=== PATIENT | male | born 1995 | race Caucasian/White ===

== ENCOUNTER 2017-05-19 14:59 | Emergency (ER) | payer MEDICAID, OTHER ==
[~2017-05-19] VITALS: Ht 182.9 cm; Wt 93.0 kg
[~2017-05-19 14:59] MED LIST: METH4TAB3 PO; METH500T PO
[2017-05-19 15:23] VITALS: BP 121/65
[2017-05-19] MEDS ORDERED: ketorolac trometh inj. 60 MG/2 ML VIAL IM ONE (16:15)
[2017-05-19 16:53] LABS: CLARITY,URINE Clear (Clear); COLOR,URINE Yellow (Yellow); GLUCOSE, URINE Negative (Neg); KETONES,URINE Negative (Neg); LEUKOCYTE ESTERASE ,URINE Negative (Neg); NITRITES, URINE Negative (Neg); OCCULT BLOOD,URINE Negative (Neg); PROTEIN,URINE Negative (Neg)
[2017-05-19 16:56] LABS: UA COLLECTION TYPE NON-SPECIFIED
== END 2017-05-19 17:46 | disposition home or self-care (01) ==
LOC: ER 14:59
DX: M54.9 Dorsalgia, unspecified (principal); F12.10 Cannabis abuse, uncomplicated; Z56.0 Unemployment, unspecified; Z79.899 Other long term (current) drug therapy
CPT/HCPCS: 81003; 96372; 99283; J1885

== ENCOUNTER 2017-08-05 15:04 | Emergency (ER) | payer MEDICAID, OTHER ==
[~2017-08-05] VITALS: Ht 182.9 cm; Wt 87.7 kg
[2017-08-05] MEDS ORDERED: dexamethasone sod phosphate 10mg/ml inj IM STA (15:08)
[2017-08-05] MEDS ORDERED: CefTRIAXone 250MG inj IM ONE (15:10)
[2017-08-05] MEDS ORDERED: ketorolac trometh inj. 60 MG/2 ML VIAL IM ONE (15:10)
[2017-08-05] MEDS ORDERED: CefTRIAXone 250MG IM Kit w/LIDOcaine IM ONE (15:15)
[2017-08-05] MEDS ORDERED: CEPH-571 PO (15:23)
[2017-08-05] MEDS ORDERED: LIDO20SO16 PO (15:23)
[2017-08-05] MEDS ORDERED: IBUP-1984 PO (15:23)
[2017-08-05 15:48] VITALS: BP 129/89
== END 2017-08-05 15:49 | disposition home or self-care (01) ==
LOC: ER 15:05
DX: J02.0 Streptococcal pharyngitis (principal); F12.90 Cannabis use, unspecified, uncomplicated; Z90.49 Acquired absence of other specified parts of digestive tract; Z56.0 Unemployment, unspecified; Z79.899 Other long term (current) drug therapy
CPT/HCPCS: 87081; 87880; 96372; 99284; J0696; J1100; J1885

== ENCOUNTER 2017-09-27 00:48 | Emergency (ER) | payer MEDICAID ==
[~2017-09-27] VITALS: Ht 182.9 cm; Wt 90.2 kg
[~2017-09-27 00:48] MED LIST changes: +CEPH-571 PO; +LIDO20SO16 PO
[2017-09-27] MEDS ORDERED: ketorolac trometh inj. 60 MG/2 ML VIAL IM ONE (01:15)
[2017-09-27 01:30] LABS: BASOPHILS # (AUTO) 0.1 X10'3 (0-0.2); BASOPHILS % (AUTO) 0.6 % (0-1); EOSINOPHILS # (AUTO) 0.1 X10'3 (0-0.9); EOSINOPHILS % (AUTO) 1.3 % (0-6); HEMATOCRIT 45.2 % (42.0-52.0); HEMOGLOBIN 15.5 g/dl (14.0-17.9); LYMPHOCYTES # (AUTO) 2.7 X10'3 (1.1-4.8); LYMPHOCYTES % (AUTO) 26.9 % (21-51); MEAN CORPUSCULAR HGB CONC 34.3 % (33.0-36.5); MEAN CORPUSCULAR VOLUME 90.4 FL (78-98); MONOCYTES # (AUTO) 0.5 X10'3 (0-0.9); NEUTROPHILS # (AUTO) 6.7 X10'3 (1.8-7.7); NEUTROPHILS % (AUTO) 66.2 % (42-75); PLATELET COUNT 237 X10'3 (140-440); RED BLOOD COUNT 4.99 X10'6 (4.70-6.10); RED CELL DISTRIBUTION WIDTH 12.1 % (11.5-14.5); WHITE BLOOD COUNT 10.1 X10'3 (4.5-11.0)
[2017-09-27 01:39] LABS: INR 1.1 INR; PROTHROMBIN TIME 11.4 SECONDS (9.0-12.0)
[2017-09-27 01:44] LABS: ALANINE AMINOTRANSFERASE 30 U/L (12-78); ALBUMIN 4.2 G/DL (3.4-5.0); ALBUMIN/GLOBULIN RATIO 1.2 (1.1-1.5); ALKALINE PHOSPHATASE 85 IU/L (46-116); ANION GAP 8 (8-16); ASPARTATE AMINO TRANSFERASE 14 U/L (10-37); BILIRUBIN,TOTAL 0.4 MG/DL (0.1-1.0); BLOOD UREA NITROGEN 12 MG/DL (7-18); BUN/CREATININE RATIO 12.5 (5.4-32.0); CALCIUM 9.3 MG/DL (8.5-10.1); CHLORIDE 103 MMOL/L (99-107); CREATININE 0.96 MG/DL (0.60-1.10); GLUCOSE 101 MG/DL (70-104); LIPASE 160 U/L (73-393); POTASSIUM 3.7 MMOL/L (3.5-5.1); SODIUM 139 MMOL/L (135-145); TOTAL CARBON DIOXIDE 28.3 MMOL/L (24-32); TOTAL PROTEIN 7.7 G/DL (6.4-8.2); eGFR > 90 ML/MIN
[2017-09-27] MEDS ORDERED: HYDR-565 PO (01:53)
[2017-09-27 02:00] VITALS: BP 122/68
[2017-09-27 02:21] LABS: CLARITY,URINE CLEAR (Clear); COLOR,URINE YELLOW (Yellow); GLUCOSE, URINE NEGATIVE (Neg); KETONES,URINE NEGATIVE (Neg); LEUKOCYTE ESTERASE ,URINE NEGATIVE (Neg); NITRITES, URINE NEGATIVE (Neg); OCCULT BLOOD,URINE NEGATIVE (Neg); PROTEIN,URINE NEGATIVE (Neg); UROBILINOGEN,URINE 0.2 E.U/dL (0.2-1.0)
[2017-09-27 02:25] LABS: UA COLLECTION TYPE URINAL
== END 2017-09-27 02:01 | disposition home or self-care (01) ==
LOC: ER 00:48
DX: R10.12 Left upper quadrant pain (principal); F12.90 Cannabis use, unspecified, uncomplicated; Z90.49 Acquired absence of other specified parts of digestive tract; Z56.0 Unemployment, unspecified; Z79.899 Other long term (current) drug therapy
CPT/HCPCS: 36415; 80053; 81003; 83690; 85025; 85610; 96372; 99284; J1885

== ENCOUNTER 2017-11-03 19:25 | Emergency (ER) | payer MEDICAID ==
[~2017-11-03] VITALS: Ht 180.3 cm; Wt 92.0 kg
[2017-11-03] MEDS ORDERED: dexamethasone sod phosphate 10mg/ml inj PO STA (21:04)
[2017-11-03] MEDS ORDERED: ondansetron 4mg rapidly disintigrating tab PO ONE (21:05)
[2017-11-03 22:00] VITALS: BP 134/79
== END 2017-11-03 22:07 | disposition home or self-care (01) ==
LOC: ER 19:26
DX: J02.9 Acute pharyngitis, unspecified (principal); R13.10 Dysphagia, unspecified; R50.9 Fever, unspecified; R05 Cough; F12.90 Cannabis use, unspecified, uncomplicated
CPT/HCPCS: 87081; 87880; 99284; J1100

== ENCOUNTER 2018-08-01 21:41 | Emergency (ER) | payer MEDICAID ==
[~2018-08-01] VITALS: Ht 177.8 cm; Wt 95.0 kg
[~2018-08-01 21:41] MED LIST changes: +CEPH500C5 PO
[2018-08-01] MEDS ORDERED: ketorolac trometh inj. 60 MG/2 ML VIAL IM ONE (22:55)
[2018-08-01] MEDS ORDERED: LIDOcaine 5% patch TP SCH (22:56)
[2018-08-01 23:18] VITALS: BP 118/63
== END 2018-08-01 23:26 | disposition home or self-care (01) ==
LOC: ER 21:42
DX: S39.012A Strain of muscle, fascia and tendon of lower back, initial encounter (principal); F12.90 Cannabis use, unspecified, uncomplicated; Z90.49 Acquired absence of other specified parts of digestive tract; Z56.0 Unemployment, unspecified; Z79.899 Other long term (current) drug therapy; X50.0XXA Overexertion from strenuous movement or load, initial encounter; Y93.89 Activity, other specified; Y92.89 Other specified places as the place of occurrence of the external cause; Y99.8 Other external cause status
CPT/HCPCS: 96372; 99283; J1885

== ENCOUNTER 2018-09-19 13:51 | Emergency (ER) | payer MEDICAID ==
[~2018-09-19] VITALS: Ht 177.8 cm; Wt 97.0 kg
[2018-09-19] MEDS ORDERED: normal saline 1000ML IV soln IVB ONE (14:15)
[2018-09-19] MEDS ORDERED: morphine 4 MG/ML inj SYRINge IV ONE (14:15)
[2018-09-19] MEDS ORDERED: ondansetron/PF 4mg/2ml inj IV ONE (14:15)
[2018-09-19 14:42] LABS: BASOPHILS % (AUTO) 0.4 % (0-1); EOSINOPHILS % (AUTO) 0.3 % (0-6); HEMATOCRIT 46.5 % (42.0-52.0); HEMOGLOBIN 15.9 g/dl (14.0-17.9); LYMPHOCYTES # (AUTO) 1.5 X10'3 (1.1-4.8); LYMPHOCYTES % (AUTO) 19.1 % (21-51); MEAN CORPUSCULAR HEMOGLOBIN 30.8 PG (27.0-31.0); MEAN CORPUSCULAR HGB CONC 34.3 g/dL (33.0-36.5); MEAN CORPUSCULAR VOLUME 89.7 FL (78-98); MEAN PLATELET VOLUME 7.3 FL (7.4-10.4); MONOCYTES # (AUTO) 0.5 X10'3 (0-0.9); MONOCYTES % (AUTO) 6.5 % (2-12); NEUTROPHILS # (AUTO) 5.9 X10'3 (1.8-7.7); NEUTROPHILS % (AUTO) 73.7 % (42-75); PLATELET COUNT 268 X10'3 (140-440); RED BLOOD COUNT 5.18 X10'6 (4.70-6.10); RED CELL DISTRIBUTION WIDTH 13.1 % (11.5-14.5); WHITE BLOOD COUNT 8.1 X10'3 (4.5-11.0)
[2018-09-19 14:53] LABS: ALANINE AMINOTRANSFERASE 204 U/L (12-78); ALBUMIN 4.7 G/DL (3.4-5.0); ALBUMIN/GLOBULIN RATIO 1.2 (1.1-1.5); ALKALINE PHOSPHATASE 88 IU/L (46-116); ANION GAP 10 (8-16); ASPARTATE AMINO TRANSFERASE 85 U/L (10-37); BILIRUBIN,TOTAL 0.7 MG/DL (0.1-1.0); BLOOD UREA NITROGEN 13 MG/DL (7-18); BUN/CREATININE RATIO 15.7 (5.4-32.0); CALCIUM 9.9 MG/DL (8.5-10.1); CHLORIDE 104 MMOL/L (99-107); CREATININE 0.83 MG/DL (0.60-1.10); GLUCOSE 91 MG/DL (70-104); LIPASE 110 U/L (73-393); POTASSIUM 4.1 MMOL/L (3.5-5.1); SODIUM 139 MMOL/L (135-145); TOTAL CARBON DIOXIDE 24.8 MMOL/L (24-32); TOTAL PROTEIN 8.5 G/DL (6.4-8.2); eGFR > 90 ML/MIN
[2018-09-19 17:15] VITALS: BP 118/68
== END 2018-09-19 17:16 | disposition home or self-care (01) ==
LOC: ER 13:51
DX: R10.11 Right upper quadrant pain (principal); R74.8 Abnormal levels of other serum enzymes; R11.0 Nausea; M54.9 Dorsalgia, unspecified; F12.90 Cannabis use, unspecified, uncomplicated; F10.99 Alcohol use, unspecified with unspecified alcohol-induced disorder; Z56.0 Unemployment, unspecified; Z90.49 Acquired absence of other specified parts of digestive tract; Z79.899 Other long term (current) drug therapy; Y90.9 Presence of alcohol in blood, level not specified
CPT/HCPCS: 36415; 76700; 80053; 83690; 85025; 96374; 96375; 99284; J2270; J2405; J7030

== ENCOUNTER 2018-12-08 20:13 | Emergency (ER) | payer MEDICAID ==
[~2018-12-08] VITALS: Ht 177.8 cm; Wt 97.7 kg
[2018-12-08 20:19] VITALS: BP 141/80
[2018-12-08] MEDS ORDERED: LIDOcaine 5% patch TP STA (21:39)
[2018-12-08] MEDS ORDERED: oxyCODONE/APAP 5-325mg tablet PO ONE (21:40)
== END 2018-12-08 22:23 | disposition home or self-care (01) ==
LOC: ER 22:17
DX: M54.5 Low back pain (principal); G89.29 Other chronic pain; F10.99 Alcohol use, unspecified with unspecified alcohol-induced disorder; F12.90 Cannabis use, unspecified, uncomplicated; Z56.0 Unemployment, unspecified; Z90.49 Acquired absence of other specified parts of digestive tract; Z79.899 Other long term (current) drug therapy; Y90.9 Presence of alcohol in blood, level not specified
CPT/HCPCS: 99283

== ENCOUNTER 2019-10-22 20:53 | Emergency (ER) | payer MEDICAID ==
[~2019-10-22] VITALS: Ht 177.8 cm; Wt 100.5 kg
[~2019-10-22 20:53] MED LIST changes: -CEPH500C5 PO
--- NOTE | 2019-10-22 21:46 | NUR ---
has chronic back pain. taking diclofenac and gabapentin.
[2019-10-22] MEDS ORDERED: HYDROcodone/acetaminophen 10/325mg tab PO ONE (23:15)
[2019-10-22] MEDS ORDERED: aspirin 325mg tablet PO ONE (23:15)
[2019-10-23] MEDS ORDERED: naproxen 500mg tablet PO ONE (00:45)
[2019-10-23] MEDS ORDERED: magnesium oxide 400mg tablet PO ONE (00:45)
[2019-10-23] MEDS ORDERED: NAPR-56 PO (00:55)
[2019-10-23 01:18] VITALS: BP 118/55
== END 2019-10-23 01:25 | disposition home or self-care (01) ==
LOC: ER 20:54
DX: M79.661 Pain in right lower leg (principal); G89.29 Other chronic pain; F12.90 Cannabis use, unspecified, uncomplicated; Z90.49 Acquired absence of other specified parts of digestive tract; Z56.0 Unemployment, unspecified; Z79.2 Long term (current) use of antibiotics; Z79.899 Other long term (current) drug therapy
CPT/HCPCS: 93971; 99284; 99285

== ENCOUNTER 2020-09-22 12:57 | Emergency (ER) | payer MEDICAID ==
[~2020-09-22] VITALS: Ht 177.8 cm; Wt 122.7 kg
[2020-09-22] MEDS ORDERED: ketorolac trometh. 30mg/ml inj. IV ONE (13:45)
[2020-09-22] MEDS ORDERED: famotidine/PF 10 mg/ml inj IV ONE (13:45)
[2020-09-22] MEDS ORDERED: ondansetron/PF 4mg/2ml inj IV ONE (13:45)
[2020-09-22] MEDS ORDERED: normal saline 1000ML IV soln IVB ONE (13:45)
--- NOTE | 2020-09-22 14:01 | NUR ---
US ON THEIR WAY, 20 MIN ETA
[2020-09-22 14:26] LABS: BASOPHILS # (AUTO) 0.1 X10'3 (0-0.2); BASOPHILS % (AUTO) 0.8 % (0-1); EOSINOPHILS % (AUTO) 0.3 % (0-6); HEMATOCRIT 48.3 % (42.0-52.0); HEMOGLOBIN 16.5 g/dl (14.0-17.9); LYMPHOCYTES # (AUTO) 1.9 X10'3 (1.1-4.8); LYMPHOCYTES % (AUTO) 18.2 % (21-51); MEAN CORPUSCULAR HEMOGLOBIN 30.5 PG (27.0-31.0); MEAN CORPUSCULAR HGB CONC 34.2 g/dL (33.0-36.5); MEAN CORPUSCULAR VOLUME 89.2 FL (78-98); MEAN PLATELET VOLUME 7.3 FL (7.4-10.4); MONOCYTES # (AUTO) 0.6 X10'3 (0-0.9); MONOCYTES % (AUTO) 5.6 % (2-12); NEUTROPHILS % (AUTO) 75.1 % (42-75); PLATELET COUNT 323 X10'3 (140-440); RED BLOOD COUNT 5.41 X10'6 (4.70-6.10); RED CELL DISTRIBUTION WIDTH 12.8 % (11.5-14.5); WHITE BLOOD COUNT 10.7 X10'3 (4.5-11.0)
--- NOTE | 2020-09-22 14:36 | NUR ---
US IN ROOM WITH PATIENT
[2020-09-22 14:37] LABS: ALANINE AMINOTRANSFERASE 45 U/L (12-78); ALBUMIN 4.5 G/DL (3.4-5.0); ALBUMIN/GLOBULIN RATIO 1.1 (1.1-1.5); ALKALINE PHOSPHATASE 130 IU/L (46-116); ANION GAP 7 (8-16); ASPARTATE AMINO TRANSFERASE 22 U/L (10-37); BILIRUBIN,TOTAL 0.5 MG/DL (0.1-1.0); BLOOD UREA NITROGEN 11 MG/DL (7-18); BUN/CREATININE RATIO 11.6 (5.4-32.0); CALCIUM 9.4 MG/DL (8.5-10.1); CHLORIDE 101 MMOL/L (99-107); CREATININE 0.95 MG/DL (0.60-1.10); GLUCOSE 101 MG/DL (70-104); LIPASE 91 U/L (73-393); POTASSIUM 3.8 MMOL/L (3.5-5.1); SODIUM 136 MMOL/L (135-145); TOTAL CARBON DIOXIDE 27.7 MMOL/L (24-32); TOTAL PROTEIN 8.7 G/DL (6.4-8.2); eGFR > 90 ML/MIN
[2020-09-22] MEDS ORDERED: sucralfate 1gm/10ml UD suspension PO STA (15:07)
[2020-09-22] MEDS ORDERED: mag hydrox/Alum hydrox/simeth 30ml oral suspension PO ONE (15:10)
[2020-09-22] MEDS ORDERED: LIDOcaine Viscous 15ml cup MM ONE (15:10)
[2020-09-22 16:19] VITALS: BP 123/62
== END 2020-09-22 16:23 | disposition home or self-care (01) ==
LOC: ER 12:58
DX: R10.11 Right upper quadrant pain (principal); R11.0 Nausea; R10.13 Epigastric pain; G89.29 Other chronic pain; F12.90 Cannabis use, unspecified, uncomplicated; Z90.89 Acquired absence of other organs; Z56.0 Unemployment, unspecified; Z79.2 Long term (current) use of antibiotics; Z79.899 Other long term (current) drug therapy
CPT/HCPCS: 36415; 76700; 80053; 83690; 85025; 96361; 96374; 96375; 99284; J1885; J2405; J3490; J7030

== ENCOUNTER 2023-01-18 13:06 | Emergency (ER) | payer MEDICAID ==
[~2023-01-18] VITALS: Ht 177.8 cm; Wt 118.2 kg
[2023-01-18 13:13] VITALS: TEMP 97.8
[2023-01-18] MEDS ORDERED: pantoprazole 40mg Tablet.DR PO ONE (13:24)
[2023-01-18 13:50] LABS: BASOPHILS % (AUTO) 0.5 % (0-1); EOSINOPHILS # (AUTO) 0.1 X10'3 (0-0.9); EOSINOPHILS % (AUTO) 0.7 % (0-6); HEMATOCRIT 45.7 % (42.0-52.0); HEMOGLOBIN 15.9 g/dl (14.0-17.9); LYMPHOCYTES # (AUTO) 2.8 X10'3 (1.1-4.8); LYMPHOCYTES % (AUTO) 36.3 % (21-51); MEAN CORPUSCULAR HEMOGLOBIN 31.1 PG (27.0-31.0); MEAN CORPUSCULAR HGB CONC 34.9 g/dL (33.0-36.5); MEAN CORPUSCULAR VOLUME 89.1 FL (78-98); MEAN PLATELET VOLUME 7.3 FL (7.4-10.4); MONOCYTES # (AUTO) 0.5 X10'3 (0-0.9); MONOCYTES % (AUTO) 6.3 % (2-12); NEUTROPHILS # (AUTO) 4.4 X10'3 (1.8-7.7); NEUTROPHILS % (AUTO) 56.2 % (42-75); PLATELET COUNT 297 X10'3 (140-440); RED BLOOD COUNT 5.13 X10'6 (4.70-6.10); RED CELL DISTRIBUTION WIDTH 13.1 % (11.5-14.5); WHITE BLOOD COUNT 7.8 X10'3 (4.5-11.0)
[2023-01-18 13:55] LABS: ALANINE AMINOTRANSFERASE 51 U/L (12-78); ALBUMIN 4.4 G/DL (3.4-5.0); ALBUMIN/GLOBULIN RATIO 1.3 (1.1-1.5); ALKALINE PHOSPHATASE 88 IU/L (46-116); ANION GAP 8 (8-16); ASPARTATE AMINO TRANSFERASE 24 U/L (10-37); BILIRUBIN,TOTAL 0.5 MG/DL (0.1-1.0); BLOOD UREA NITROGEN 10 MG/DL (7-18); BUN/CREATININE RATIO 10.3 (10.0-20.0); CALCIUM 9.5 MG/DL (8.5-10.1); CHLORIDE 102 MMOL/L (99-107); CREATININE 0.97 MG/DL (0.60-1.10); GLUCOSE 85 MG/DL (70-104); POTASSIUM 3.6 MMOL/L (3.5-5.1); SODIUM 139 MMOL/L (135-145); TOTAL CARBON DIOXIDE 29.1 MMOL/L (24-32); TOTAL PROTEIN 7.9 G/DL (6.4-8.2); eCRCL 119 ML/MIN; eGFR > 90 ML/MIN
[2023-01-18 14:06] LABS: PRO BRAIN NATRIURETIC PEPTIDE < 30 PG/ML (0-125)
[2023-01-18 14:43] VITALS: BP 135/84; PULSE 74; RESP 12; O2SAT 99
== END 2023-01-18 14:47 | disposition home or self-care (01) ==
LOC: ER 13:06
DX: R07.89 Other chest pain (principal); R10.13 Epigastric pain; G89.29 Other chronic pain; F12.90 Cannabis use, unspecified, uncomplicated; Z90.49 Acquired absence of other specified parts of digestive tract; Z56.0 Unemployment, unspecified; Z79.899 Other long term (current) drug therapy
CPT/HCPCS: 36415; 71045; 80053; 83880; 84484; 85025; 93005; 99285

== ENCOUNTER 2023-12-13 08:20 | Emergency (ER) | payer MEDICAID ==
[~2023-12-13] VITALS: Ht 177.8 cm; Wt 113.1 kg
[2023-12-13 09:11] LABS: ALANINE AMINOTRANSFERASE 66 U/L (12-78); ALBUMIN 4.6 G/DL (3.4-5.0); ALBUMIN/GLOBULIN RATIO 1.2 (1.1-1.5); ALKALINE PHOSPHATASE 115 IU/L (46-116); ANION GAP 10 (8-16); ASPARTATE AMINO TRANSFERASE 38 U/L (10-37); BILIRUBIN,TOTAL 0.9 MG/DL (0.1-1.0); BLOOD UREA NITROGEN 18 MG/DL (7-18); BUN/CREATININE RATIO 20.5 (10.0-20.0); CALCIUM 9.5 MG/DL (8.5-10.1); CHLORIDE 104 MMOL/L (99-107); CREATININE 0.88 MG/DL (0.60-1.10); GLUCOSE 112 MG/DL (70-104); LIPASE 54 U/L (16-77); POTASSIUM 4.1 MMOL/L (3.5-5.1); SODIUM 139 MMOL/L (135-145); TOTAL CARBON DIOXIDE 24.6 MMOL/L (24-32); TOTAL PROTEIN 8.3 G/DL (6.4-8.2); eCRCL 130 ML/MIN; eGFR > 90 ML/MIN
[2023-12-13 09:13] LABS: BASOPHILS % (AUTO) 0.2 % (0-1); EOSINOPHILS # (AUTO) 0.1 X10'3 (0-0.9); EOSINOPHILS % (AUTO) 0.4 % (0-6); HEMATOCRIT 49.3 % (42.0-52.0); HEMOGLOBIN 16.5 g/dl (14.0-17.9); LYMPHOCYTES # (AUTO) 0.7 X10'3 (1.1-4.8); LYMPHOCYTES % (AUTO) 3.8 % (21-51); MEAN CORPUSCULAR HEMOGLOBIN 30.1 PG (27.0-31.0); MEAN CORPUSCULAR HGB CONC 33.4 g/dL (33.0-36.5); MEAN PLATELET VOLUME 8.4 FL (7.4-10.4); MONOCYTES # (AUTO) 0.8 X10'3 (0-0.9); MONOCYTES % (AUTO) 4.8 % (2-12); NEUTROPHILS # (AUTO) 16.1 X10'3 (1.8-7.7); NEUTROPHILS % (AUTO) 90.8 % (42-75); PLATELET COUNT 265 X10'3 (140-440); RED BLOOD COUNT 5.47 X10'6 (4.70-6.10); RED CELL DISTRIBUTION WIDTH 12.9 % (11.5-14.5); WHITE BLOOD COUNT 17.7 X10'3 (4.5-11.0)
[2023-12-13] MEDS: ondansetron/PF 4mg/2ml inj IV ONE (09:51)
[2023-12-13] MEDS ORDERED: ONDA-243 PO (10:33)
[2023-12-13 10:42] VITALS: BP 128/87; PULSE 84; RESP 15; TEMP 98.6; O2SAT 100
== END 2023-12-13 10:45 | disposition home or self-care (01) ==
LOC: ER 08:21
DX: K52.9 Noninfective gastroenteritis and colitis, unspecified (principal); F12.90 Cannabis use, unspecified, uncomplicated; G89.29 Other chronic pain; R11.2 Nausea with vomiting, unspecified; Z79.2 Long term (current) use of antibiotics; Z79.899 Other long term (current) drug therapy; Z98.890 Other specified postprocedural states; Z90.49 Acquired absence of other specified parts of digestive tract
CPT/HCPCS: 36415; 80053; 83690; 85025; 96374; 99283; J2405; J7030